=== PATIENT | male | born 1980 | race Hispanic/Latino ===

== ENCOUNTER 2021-01-25 21:31 | Emergency (ER) | payer SELFPAY ==
[2021-01-25 22:31] VITALS: BP 120/77
== END 2021-01-25 22:35 | disposition left against medical advice (07) ==
LOC: ED 21:31
DX: M79.89 Other specified soft tissue disorders (principal); Z53.21 Procedure and treatment not carried out due to patient leaving prior to being seen by health care provider

== ENCOUNTER 2021-01-31 21:30 | Emergency (ER) | payer SELFPAY ==
[2021-01-31 21:52] VITALS: BP 119/83
--- NOTE | 2021-01-31 22:26 | XRay Report ---
HISTORY:right elbow swelling COMPARISON: None. TECHNIQUE: AP lateral and obliques views were obtained FINDINGS: Bones: No fracture or dislocation. Joint spaces: Maintained. Soft tissues: Soft tissue edema posterior aspect of the elbow Additional findings: None. IMPRESSION: 1. No significant abnormality. Signer Name: Zachariah Forbes MD Signed: 01/31/2021 10:21 PM Workstation Name: [id number]
--- NOTE | 2021-01-31 23:54 | Emergency Department Report ---
ED General Adult HPI - General Chief complaint: Extremity Injury, Upper Stated complaint: RT ELBOW SWOLLEN Time Seen by Provider: 01/31/21 23:47 Source: patient Mode of arrival: Ambulatory Limitations: No Limitations - History of Present Illness Initial comments: Patient is 41 years old male with no significant past medical history. Patient presented to the ER complaining of right elbow swelling has been going on for 2 months. Patient stated that he do a lot of work on his hands. Patient denied any fever or chills. Denied any recent injury. Patient stated that he is able to use his alcohol with no problem however he feel the lump is getting bigger. -: month(s) (2) - Related Data Allergies Allergy/AdvReac Type Severity Reaction Status Date / Time No Known Allergies Allergy Unverified 01/25/21 22:25 ED Review of Systems ROS: Stated complaint: RT ELBOW SWOLLEN Other details as noted in HPI Comment: All other systems reviewed and negative Constitutional: denies: chills, fever Respiratory: denies: shortness of breath Cardiovascular: denies: chest pain Musculoskeletal: denies: back pain ED Past Medical Hx - Past Medical History Previous Medical History?: No - Surgical History Past Surgical History?: No - Social History Smoking Status: Never Smoker Substance Use Type: None ED Physical Exam - General Limitations: No Limitations General appearance: alert, in no apparent distress - Head Head exam: Present: atraumatic, normocephalic, normal inspection - Eye Eye exam: Present: normal appearance - ENT ENT exam: Present: normal exam, normal orophraynx, mucous membranes moist - Neck Neck exam: Present: normal inspection - Cardiovascular Cardiovascular Exam: Present: regular rate, normal rhythm, normal heart sounds - Extremities Exam Extremities exam: Present: other (Right elbow olecranon bursitis. Painless.) - Back Exam Back exam: Present: normal inspection - Neurological Exam Neurological exam: Present: alert, oriented X3, CN II-XII intact - Psychiatric Psychiatric exam: Present: normal mood - Skin Skin exam: Present: warm, intact, normal color ED Course Vital Signs 01/31/21 21:47 Temperature 98.9 F Pulse Rate 79 Respiratory 18 Rate Blood Pressure 119/83 O2 Sat by Pulse 93 Oximetry ED Medical Decision Making - Radiology Data Radiology results: report reviewed - Medical Decision Making Patient is 41 years old male with no significant past medical history. Patient presented to the ER complaining of right elbow swelling has been going on for 2 months. Patient stated that he do a lot of work on his hands. Patient denied any fever or chills. Denied any recent injury. Patient stated that he is able to use his alcohol with no problem however he feel the lump is getting bigger. Right elbow x-ray is unremarkable. Patient has olecranon bursitis. Patient given prescription for Naprosyn advised to follow-up with orthopedics in the next 2 to 3 days and to return to the ER if he develop any new symptoms. Critical care attestation.: If time is entered above; I have spent that time in minutes in the direct care of this critically ill patient, excluding procedure time. ED Disposition Clinical Impression: Olecranon bursitis of right elbow Disposition: DC- TO HOME OR SELFCARE Is pt being admited?: No Condition: Stable Instructions: Elbow Bursitis Rehab-SportsMed, Bursitis, [id number] Referrals: PRIMARY CAREMD [Primary Care Provider] - 3-5 Days HECTOR WIN MD [Staff Physician] - 3-5 Days
== END 2021-02-01 00:02 | disposition home or self-care (01) ==
LOC: ED 21:30
DX: M70.21 Olecranon bursitis, right elbow (principal)
CPT/HCPCS: 99283

== ENCOUNTER 2021-05-26 21:35 | Emergency (ER) | payer SELFPAY | END 2021-05-26 23:15 | disposition left against medical advice (07) | LOC: ED 21:35 | DX: Z00.00 Encounter for general adult medical examination without abnormal findings (principal); Z53.21 Procedure and treatment not carried out due to patient leaving prior to being seen by health care provider ==